=== PATIENT | female | born 1955 | race Two or more races ===

== ENCOUNTER 2016-09-18 16:44 | Emergency (ER) | payer BC, OTHER ==
[2016-09-18 17:57] LABS: ABSOLUTE NEUTROPHIL COUNT 4.9 K/mm3 (1.8-7.7); BASO % 0.5 % (0.2-1.0); EOS # 0.1 (0.0-0.5); EOS % 0.8 % (0.9-2.9); HEMATOCRIT 39.5 % (37.0-47.0); HEMOGLOBIN 13.2 gm/l (12.0-16.0); IMM NEUT% 0.3 % (0-1); LYMPH # 3.3 (1.0-4.8); LYMPH % 37.1 % (15-45); MEAN CORPUSCULAR HEMOGLOBIN 28.1 pg (27.0-31.0); MEAN CORPUSCULAR HGB CONC 33.4 g/dl (33.0-37.0); MONO # 0.5 (0.0-0.8); MONO % 5.4 % (4-12); NEUT % 55.9 % (43-75); PLATELET COUNT 211 K/mm3 (130-400)
--- NOTE | 2016-09-18 18:16 | RAD ---
Name: GALDINO NAVA Exam: Two-view chest Comparison: None Clinical history: Chest pain Findings: 2 views of the chest are submitted. The heart mediastinum and hilar structures are within normal limits. There is no failure, infiltrate, pleural effusion or pneumothorax. A small amount of subsegmental atelectasis is noted within the left lung base. Regional skeleton is within normal limits. The gallbladder is surgically absent. Impression: No acute cardiopulmonary process
[2016-09-18 18:19] LABS: ALB/GLOB RATIO 1.2 (>1.0); ALBUMIN 4.1 gm/dL (3.5-5.7); CALCIUM 9.5 mg/dL (8.6-10.3)
== END 2016-09-18 19:41 | disposition home or self-care (01) ==
LOC: ED 16:44
DX: R07.9 Chest pain, unspecified (principal); M79.602 Pain in left arm; M79.601 Pain in right arm; R11.0 Nausea

== ENCOUNTER 2016-09-22 17:24 | Observation (INO) | payer BC, OTHER ==
[2016-09-22 18:42] LABS: ABSOLUTE NEUTROPHIL COUNT 4.6 K/mm3 (1.8-7.7); BASO % 0.4 % (0.2-1.0); EOS # 0.1 (0.0-0.5); EOS % 1.1 % (0.9-2.9); HEMATOCRIT 39.8 % (37.0-47.0); HEMOGLOBIN 13.4 gm/l (12.0-16.0); IMM NEUT% 0.1 % (0-1); LYMPH # 3.7 (1.0-4.8); LYMPH % 41.7 % (15-45); MEAN CELL VOLUME 83.6 fl (81.0-99.0); MEAN CORPUSCULAR HEMOGLOBIN 28.2 pg (27.0-31.0); MEAN CORPUSCULAR HGB CONC 33.7 g/dl (33.0-37.0); MEAN PLATELET VOLUME 9.9 fl (7.4-10.4); MONO # 0.5 (0.0-0.8); MONO % 5.6 % (4-12); NEUT % 51.1 % (43-75); PLATELET COUNT 244 K/mm3 (130-400)
[2016-09-22 18:43] LABS: SPECIFIC GRAVITY 1.015 (1.001-1.030); URINE BILIRUBIN NEGATIVE (NEGATIVE); URINE BLOOD NEGATIVE (NEGATIVE); URINE COLOR LIGHT YELLOW; URINE GLUCOSE (UA) NEGATIVE (NEGATIVE); URINE LEUKOCYTE ESTERASE NEGATIVE (NEGATIVE); URINE NITRITE NEGATIVE (NEGATIVE); URINE PROTEIN NEGATIVE (NEGATIVE); URINE UROBILINOGEN NORMAL (0-1 mg/dl)
[2016-09-22 18:44] LABS: URINE APPEARANCE CLEAR
[2016-09-22 18:55] LABS: ALB/GLOB RATIO 1.3 (>1.0); ALBUMIN 4.3 gm/dL (3.5-5.7); CALCIUM 9.7 mg/dL (8.6-10.3)
[2016-09-22 18:58] LABS: TROPONIN I < 0.01 ng/ml (0.0-0.06)
[2016-09-22] MEDS ORDERED: ASPIRIN CHEWTAB 81 MG TABLET ONE (19:00)
[2016-09-22 19:01] LABS: CKMB ISOENZYME 13.6 ng/ml (0.6-6.3)
[2016-09-22] MEDS ORDERED: REGADENOSON 0.1 MG DOSE IV ONE (20:37)
[2016-09-22 21:33] VITALS: BMI 31.8
[2016-09-22] MEDS ORDERED: POTASSIUM CHLORIDE 20 MEQ TAB.PRT.SR PO ONE (22:27)
[2016-09-22] MEDS ORDERED: ACETAMINOPHEN 325 MG TABLET PO PRN (22:29)
[2016-09-22] MEDS ORDERED: BISACODYL 10 MG SUP PR PRN (22:29)
[2016-09-22] MEDS ORDERED: BISACODYL 5 MG TABLET.EC PO PRN (22:29)
[2016-09-22] MEDS ORDERED: NITROGLYCERIN 0.4 MG/TAB.SUBL BOT SL PRN (22:29)
[2016-09-22] MEDS ORDERED: BLISTEX LIPSTICK 1 EACH TP PRN (22:29)
[2016-09-22] MEDS ORDERED: MAGNESIUM HYDROXIDE 30 ML UDCUP PO PRN (22:29)
[2016-09-22] MEDS ORDERED: MENTHOL/CETYLPYRD 1 EACH LOZENGE PO PRN (22:29)
[2016-09-22] MEDS ORDERED: SODIUM CHLORIDE 0.9% 100 ML IV PRN (22:29)
[2016-09-22] MEDS ORDERED: LOVASTATIN 20 MG TABLET PO SCH (22:30)
[2016-09-22] MEDS: DOCUSATE SODIUM 100 MG CAPSULE PO SCH (23:15)
[2016-09-23 07:32] VITALS: BP 125/65
[2016-09-23] MEDS: DOCUSATE SODIUM 100 MG CAPSULE PO SCH (08:01)
[2016-09-23] MEDS ORDERED: ASPIRIN (ENTERIC COATED) 325 MG TABLET.EC PO SCH (09:00)
--- NOTE | 2016-09-23 10:56 | RAD ---
CHEST - 2 VIEWS COMPARISON: Chest 2 views, 09/18/2016 HISTORY: Chest pain, cough, and shortness of breath FINDINGS: Views: Frontal and lateral chest Lungs: Normal Heart and vessels: Normal Trachea and bronchi: Normal Mediastinum and kayce: Normal Costophrenic sulci: Normal Chest wall and bones: Normal. Upper abdomen: Normal. IMPRESSION: Negative 2 view chest.
--- NOTE | 2016-09-23 11:41 | PDOC43 ---
- Subjective Chief Complaint: Chest pain Continues to have intermittent chest pressure and had episode of dyspnea with normal VS and saturation. - Objective Vital Signs Temperature 97.4 F 09/23/16 07:30 Pulse Rate 68 09/23/16 07:30 Respiratory Rate 16 09/23/16 08:05 Blood Pressure 125/65 09/23/16 07:30 O2 Saturation by Pulse Oximetry 97 09/23/16 07:30 Oxygen Delivery Method Room Air Oxygen Flow Rate 0 Intake and Output 09/22/16 09/23/16 09/24/16 06:59 06:59 06:59 Intake Total 500 Output Total 250 Balance 250 General: Alert, Oriented x3, Cooperative, No Acute Distress HEENT: Mucous membr. moist/pink Lungs: Clear to Auscultation Bilaterally Cardiovascular: Regular Rate and Rhythm Abdomen: Soft, Normal Bowel Sounds, No Tenderness, No Masses Extremities: Normal Pulses, No Edema Skin: Normal Color Neurological: Normal Speech Psych/Mental Status: Anxious Laboratory 09/23/16 05:20 Current Medications: Current meds reviewed in EMR. - Problems: Assessment/Plan (1) Chest pain Qualifiers: Chest pain type: unspecified Qualifier Code: (R07.9) Chest pain, unspecified Status: AcuteAssessment/Plan: Troponin negative x 3, proceed with Lexiscan MPI. 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 VTE Prophylaxis: not indicated Disposition: Home after stress test, or transfer to cardiology if positive.
--- NOTE | 2016-09-23 12:24 | NUC MED ---
CARDIAC STRESS MULTIPLE STUDY COMPARISON: None HISTORY: Chest pain. TECHNIQUE: Gated SPECT performed after IV injection sestamibi at rest and again after pharmacologic stress. End diastolic and end systolic measurements of left ventricular volume were used to calculate the ejection fracture. Computer generated wall motion reproduction was performed. DOSE: Sestamibi (rest): 11.4 mCi Sestamibi (stress): 35.0 mCi Lexiscan: 0.4 mg ECG findings: See separate report by Dr. Zeng. FINDINGS: Left ventricle perfusion at rest: Normal Left ventricle perfusion at stress: Normal Ejection fraction: 89% Wall motion: Normal IMPRESSION: No fixed or reversible defect. Normal ejection fraction of greater than 50 percent and normal wall motion.
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
== END 2016-09-23 13:39 | disposition home or self-care (01) ==
LOC: ED 17:24 → MS 20:36
PROVIDERS: ADMIT Family Medicine; ATTEND Family Medicine
DX: R07.9 Chest pain, unspecified (principal); E78.00 Pure hypercholesterolemia, unspecified; E11.9 Type 2 diabetes mellitus without complications; F41.1 Generalized anxiety disorder; K59.00 Constipation, unspecified; F32.9 Major depressive disorder, single episode, unspecified; Z91.14 Patient's other noncompliance with medication regimen